=== PATIENT | female | born 1990 | race Caucasian/White ===

== ENCOUNTER → 2021-10-31 11:50 | Outpatient (CLI) | payer OTHER, SELFPAY | PROVIDERS: PCP Physician Assistant; Visit Provider Physician Assistant | DX: N76.0 Acute vaginitis (principal) | CPT/HCPCS: 87801; 87661; 87798 ==

== ENCOUNTER → 2024-10-13 09:59 | Outpatient (CLI) | payer BC, SELFPAY ==
[2024-10-13 19:06] LABS: Add Manual Diff / Slide Review NO; Basophils Absolute Auto 0 /uL (0-100); Basophils Percent Auto 0.6 % (0-2); Eosinophils Absolute Auto 100 /uL (0-450); Eosinophils Percent Auto 2.2 % (2-4); HEMOLYSIS 33 (0-50); Hematocrit 38.1 % (36-46); Hemoglobin 12.4 g/dL (12.0-16.0); Iron 104 ug/dL (37-170); Lymphocytes Absolute Auto 1800 /uL (1100-4500); Lymphocytes Percent Auto 36.7 % (25-40); Mean Corpuscular HGB Conc 32.5 % (30-36); Mean Corpuscular Volume 76.9 fL (80-100); Monocytes Absolute Auto 300 /uL (0-900); Neutrophils Absolute Auto 2600 /uL (1500-7000); Neutrophils Percent Auto 53.5 % (50-75); Platelet Count 226 X10^3/uL (150-400); Red Blood Cell Count 4.96 X10^6/uL (4.0-5.2); Red Cell Distribution Width 15.1 % (11.6-14.8); White Blood Cell Count 4.8 X10^3/uL (4.5-11.0)
[2024-10-13 19:12] LABS: Alanine Aminotransferase 17 IU/L (<35); Albumin 4.3 g/dL (3.5-5.0); Albumin Globulin Ratio 1.5 (1.0-2.8); Alkaline Phosphatase 50 U/L (38-126); Aspartate Aminotransferase 27 IU/L (14-36); BUN Creatinine Ratio 18.6 (6-22); Bilirubin Total 0.5 mg/dL (0.2-1.3); Blood Urea Nitrogen 13 mg/dL (7-17); Calcium 9.4 mg/dL (8.4-10.2); Carbon Dioxide 25 mmol/L (22-32); Chloride 105 mmol/L (98-107); Cholesterol 202 mg/dL (140-199); Estimated Glomerular Filt Rate > 60 mL/min (>60); Globulin 2.9 g/dL (1.7-4.1); Glucose 84 mg/dL (70-99); HDL Cholesterol 44 mg/dL (40-60); HEMOLYSIS < 15 (0-50); LDL Cholesterol Calculated 139 mg/dL (<100); Potassium 4.2 mmol/L (3.4-5.1); Sodium 137 mmol/L (137-145); Total Protein 7.2 g/dL (6.3-8.2); Triglycerides 94 mg/dL (35-150)
[2024-10-13 19:18] LABS: Percent Iron Saturation 31 % (15-50); Total Iron Binding Capacity 335 ug/dL (265-497); Transferrin 271 mg/dL (206-381)
[2024-10-13 19:25] LABS: Vitamin D 25 Hydroxy (D3) 30.2 ng/mL (30.0-100.0)
[2024-10-13 19:39] LABS: TSH w/ Reflex to FT4 2.44 uIU/mL (0.47-4.68)
[2024-10-13 19:44] LABS: Ferritin 13 ng/mL (6-137)
[2024-10-13 20:15] LABS: Folate 4.4 ng/mL (2.76-20.0); Vitamin B12 298 pg/mL (239-931)
[2024-10-14 20:51] LABS: HIV 1 & 2 Ab/Ag 4th Gen Combo NEGATIVE (NEGATIVE); Hep C Virus Ab w/Reflex Quant NEGATIVE s/c (NEGATIVE)
== END ==
PROVIDERS: PCP Physician Assistant; Visit Provider Physician Assistant
DX: Z13.6 Encounter for screening for cardiovascular disorders (principal); Z82.49 Family history of ischemic heart disease and other diseases of the circulatory system; Z83.49 Family history of other endocrine, nutritional and metabolic diseases; R63.5 Abnormal weight gain; R01.1 Cardiac murmur, unspecified; Z86.2 Personal history of diseases of the blood and blood-forming organs and certain disorders involving the immune mechanism; Z11.4 Encounter for screening for human immunodeficiency virus [HIV]; Z11.59 Encounter for screening for other viral diseases
CPT/HCPCS: 80053; 80061; 82306; 82397; 82607; 82728; 82746; 83540; 83550; 84443; 85025; 86803; 87389

== ENCOUNTER → 2024-10-14 09:14 | Outpatient (CLI) | payer BC, SELFPAY ==
--- NOTE | 2024-10-14 09:16 | DI.ECHO.S_ITS ---
[facility]+ [facility] : : [address] : : [place] : : [id number] : : Phone: [phone] Echocardiogram Report + + :Name: KRZYSZTOF PRITCHARD Study Date: 10/14/2024 Height: 66 in : :Hospital ReadingLocation: Weight: 165 lb : : Gender: Female BSA: 1.8 m2 : :: 1990 Age: 34 yrs BP: 137/89 mmHg: :Reason For Study: HEART MURMUR : :Ordering Physician: NORM DINERO Performed By: Marty Schmitz : :Referring: NORM DINERO : + + Interpretation Summary The left ventricle is normal in size. Left ventricular systolic function appears normal without focal wall motion abnormalities. The ejection fraction is estimated to be 60-65%. Diastolic parameters suggest probable normal left ventricular diastolic function and normal filling pressures. The right ventricle is normal in size and function. The right ventricular systolic pressure is estimated to be at least 29 mmHg based on an estimated right atrial pressure of 3 mm Hg. Borderline left atrial enlargement. There is mild aortic regurgitation. The aortic root is normal size. Procedure: A two-dimensional transthoracic echocardiogram with color flow and Doppler was performed. The study quality was technically good. There is no prior echocardiogram noted for this patient. The patient was in normal sinus rhythm during the exam. Left Ventricle: The left ventricle is normal in size. There is normal left ventricular wall thickness. There is no ventricular septal defect visualized. Left ventricular systolic function appears normal without focal wall motion abnormalities. The ejection fraction is estimated to be 60-65%. Diastolic parameters suggest probable normal left ventricular diastolic function and normal filling pressures. Right Ventricle: The right ventricle is normal in size and function. Atria: Borderline left atrial enlargement. Right atrial size is normal. There is no Doppler evidence for an atrial septal defect. Mitral Valve: The mitral valve leaflets appear normal. There is no evidence of stenosis, fluttering, or prolapse. There is trace mitral regurgitation. Aortic Valve: The aortic valve is trileaflet. The aortic valve opens well. There is mild aortic regurgitation. Tricuspid Valve: The tricuspid valve leaflets are thin and pliable. There is mild tricuspid regurgitation. The right ventricular systolic pressure is estimated to be at least 29 mmHg based on an estimated right atrial pressure of 3 mm Hg. Pulmonic Valve: The pulmonic valve leaflets are thin and pliable; valve motion is normal. There is trace pulmonic regurgitation. Great Vessels: The aortic root is normal size. The dimensions of the ascending aorta are normal. The pulmonary artery is normal size. The IVC is of normal diameter and collapses greater than 50% with a sniff. This suggests a low right atrial pressure of 3 mm Hg. Pericardium/ Pleura There is no pericardial effusion. There is no pleural effusion. MMode/2D Measurements & Calculations LVIDd: 5.0 cm LVOT diam: 1.9 cm LVIDs: 3.4 cm Ao root diam: 2.7 cm FS: 32.9 % asc Aorta Diam: 2.9 cm EPSS: 0.61 cm Ao Arch Diam (Prox Trans): 1.00 cm IVSd: 0.72 cm LVPWd: 0.73 cm LV ayala. diameter/BSA (cm/m^2): 2.7 LV sys. diameter/BSA (cm/m^2): 1.8 LA A2 area: 18.4 cm2 RA long axis: 4.8 cm LA A4 area: 19.7 cm2 RA area: 14.1 cm2 LA length (vol): 5.4 cm RA vol: 35.0 ml LA vol: 57.5 ml RA : 19.0 ml/m2 LA vol index: 31.2 ml/m2 IVC diam: 1.9 cm RVD1 (basal): 3.5 cm RVD2 (mid): 2.4 cm TAPSE: 2.6 cm Doppler Measurements & Calculations Ao V2 max: 165.4 cm/sec LVOT Max Willi: 119.0 cm/sec Ao V2 mean: 116.0 cm/sec LV V1 max P.7 mmHg Ao max P.9 mmHg LV V1 VTI: 27.3 cm Ao mean P.0 mmHg TEJA(I,D): 2.1 cm2 Ao V2 VTI: 37.1 cm TEJA(V,D): 2.0 cm2 sev ratio: 0.73 TEJA indexed to BSA (cm^2/m^2): 1.1 AI P1/2t: 542.8 msec AI dec slope: 258.6 cm/sec2 MV E max willi: 75.5 cm/sec TR max willi: 257.8 cm/sec MV A max willi: 55.6 cm/sec TR max P.6 mmHg MV E/A: 1.4 PA V2 max: 127.7 cm/sec Med Peak E' Willi: 11.5 cm/sec PA V2 mean: 96.5 cm/sec E/E' med: 6.6 PA mean P.0 mmHg Lat Peak E' Willi: 14.0 cm/sec CORNELIUS pr(Accel): 36.2 mmHg E/E' lat: 5.4 E/e' average: 6.0 MV dec time: 0.20 sec SV(LVOT): 76.1 ml Reading Physician:06:33 PM
== END ==
PROVIDERS: PCP Physician Assistant; Referring Provider Physician Assistant; Visit Provider Physician Assistant
DX: I08.2 Rheumatic disorders of both aortic and tricuspid valves (principal); R01.1 Cardiac murmur, unspecified; Z82.49 Family history of ischemic heart disease and other diseases of the circulatory system
CPT/HCPCS: 93306

== ENCOUNTER → 2024-12-01 08:55 | Outpatient (CLI) | payer BC, SELFPAY | PROVIDERS: PCP Physician Assistant; Visit Provider Physician Assistant | DX: L08.9 Local infection of the skin and subcutaneous tissue, unspecified (principal) | CPT/HCPCS: 87070; 87075; 87205 ==

== ENCOUNTER → 2025-02-26 14:27 | Outpatient (CLI) | payer BC, SELFPAY ==
[2025-02-26 18:53] LABS: Hematocrit 36.6 % (36-46); Hemoglobin 12.1 g/dL (12.0-16.0)
== END ==
PROVIDERS: PCP Physician Assistant; Visit Provider Obstetrics & Gynecology Reproductive Endocrinology
DX: Z01.83 Encounter for blood typing (principal); Z11.59 Encounter for screening for other viral diseases
CPT/HCPCS: 85014; 85018; 86900; 86901

== ENCOUNTER → 2025-04-23 08:49 | Outpatient (CLI) | payer BC, SELFPAY ==
--- NOTE | 2025-04-23 08:51 | DI.MG.S_ITS ---
MM diagnostic mammo BI, US breast LT limited: 04/23/2025 BI-RADS: 4 CLINICAL: 35-year old female for bilateral diagnostic mammogram and left diagnostic breast ultrasound. Tyrer-Cuzick lifetime risk of 14.9%. No personal or first- degree family history of breast cancer. The patient reports a palpable abnormality felt by her doctor (3 months) in the left breast. PRIOR EXAMS: None. This is a baseline mammogram. MAMMOGRAPHY TECHNIQUE: 2D and 3D (tomosynthesis) digital mammographic views obtained, with additional images as needed for full coverage. Current study was also evaluated with a Computer Aided Detection (CAD) system. ULTRASOUND TECHNIQUE Real-time hammer scale and color doppler imaging of the area of clinical interest was performed with image documentation. Left targeted breast ultrasound of the area of clinical interest and the axilla was performed with image documentation. DENSITY C. The breasts are heterogeneously dense, which may obscure small masses. MAMMOGRAPHY FINDINGS Right: No suspicious mass, asymmetry, microcalcification, or other abnormality seen. Left (finding-1): Upper Outer Quadrant, Middle depth: Underlying surface marker and correlating with physician concern of palpable lump there is an area of architectural distortion present. Left (finding-2): Upper Inner Quadrant, Middle depth: There is a possible focal asymmetry which appears less conspicuous with spot compression views. ULTRASOUND FINDINGS Left (finding-1): Upper Outer at 1:00, 4 cm from nipple, measuring 1 x 1.2 x 0.8 cm: Underlying a surface marker and correlating with physician concern of palpable lump and also with findings on mammogram there is an area of non-specific acoustic shadowing. Left (finding-2): Upper Inner at 10:30, 4 cm from nipple: There is no sonographic abnormality to account for imaging concern on mammography. Left: Axilla, measuring 2.7 x 1.5 x 1.2 cm: There is a normal-appearing lymph node. IMPRESSION: Right * No evidence of malignancy. Left (Arch Distortion): Upper Outer at 1:00, 4 cm from nipple, measuring 1 x 1.2 x 0.8 cm * Suspicious findings with likelihood of malignancy. Left: Upper Inner Quadrant, Middle depth * Probably Benign. RECOMMENDATIONS Left: Upper Inner Quadrant, Middle depth * Recommend further management pending the results of the biopsy. If benign, recommend short interval mammographic follow up in 6 months. Left: Upper Outer at 1:00, 4 cm from nipple * Ultrasound-guided biopsy for further evaluation. COMMENTS: Findings and recommendations regarding the biopsy were conveyed to the patient during today's evaluation by Dr. Taylor. OVERALL ASSESSMENT CATEGORY BI-RADS-4: Suspicious. PRELIMINARILY ELECTRONICALLY SIGNED: Jennifer Taylor M.D. on 04/23/2025 at 11:59:28 AM PT ELECTRONICALLY SIGNED: Jennifer Taylor M.D. on 04/23/2025 at 11:59:37 AM PT Interpreting Station ID: [id number]
== END ==
LOC: MAMMO 08:50
PROVIDERS: PCP Physician Assistant; Referring Provider Physician Assistant; Visit Provider Physician Assistant
DX: R92.8 Other abnormal and inconclusive findings on diagnostic imaging of breast (principal); N63.21 Unspecified lump in the left breast, upper outer quadrant; R92.333 Mammographic heterogeneous density, bilateral breasts
CPT/HCPCS: 76642; 77066; G0279

== ENCOUNTER → 2025-04-29 14:23 | Outpatient (CLI) | payer BC, SELFPAY ==
--- NOTE | 2025-04-29 | PATH_ITS ---
[facility] Accession Number: [id number] No. of containers..01 Tissue . 01 Material submitted: . breast - LEFT BREAST MASS 1:00, 4CMFN . 01 Clinical history: . LEFT BREAST MASS 1:00 4CMFN . 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 Combined total Tiffany histologic score: 6/9 (tubule formation 3, nuclear pleomorphism 2, and mitotic index 1). Overall grade: Grade 2, moderately differentiated. In situ carcinoma present: Ductal type, solid and cribriform architecture, nuclear grade 2, without comedonecrosis. Lymphovascular invasion: Not identified. Greatest linear extent of invasive carcinoma: 11 mm, as measured from the glass slide. Rare microcalcifications associated with benign duct. Predictive markers: Estrogen and Progesterone Receptors positive, HER2 negative for expression by immunohistochemistry (1+), and low proliferation index, Ki67, please see microscopic description for details. MRV 05/01/2025 1711 Local . 01 Comment: As part of ongoing quality control lead, this case is also reviewed by Dr. Ann Lucero, who agrees with the interpretation. . Results were called to MARLENA Morrell, on 05/01/2025 at 1:15 p.m. . 01 Electronically signed: . Meg Riley MD, Pathologist NPI- [id number] . 01 Gross description: . Received is one formalin-filled container labeled with the patient's name labeled Lt. breast. The specimen is received with plastic filter in the container and sample loose in container, and consists of three hammer-shea, cylindrical shaped pieces of tissue which range in length from 1.3 to 2.0 cm with average diameter of 0.2 to 0.3 cm. The specimen is entirely submittted in cassette A1. . Collection date and time per requisition 04/29/2025 at 1548 hours. Total fixation time approximately 12 hours. (DC:[id number]) /CLAUDIA 04/30/2025 0650 Local . 01 Microscopic: . E-Cadherin immunostain is performed and is strong diffuse positive on the invasive tumor supporting ductal differentiation. . P63 and myosin immunostains confirm the absence of myoepithelial cell layer of the infiltrating tumor cells, with internal control working well. . . . . Estrogen Receptor (SP1): Positive, strong intensity, 91-100%. Progesteroner Receptor (1E2): Positive, strong intensity, 91-100%. HER2 (4B5): Negative for overexpression (1+). Proliferation marker Ki67: Low, less than 5%. . Internal controls for ER and WI are positive. Cold ischemic time is <1 minute. The scoring criteria for breast biomarkers by immunohistochemistry is based on the ASCO/CAP guidelines (Mona AC et al, J Clin Oncol: 2017 10;36(20):6904-7480 and Angelina ME et al, Arch Pathol Lab Med: 2009;134(6):907-22). Deparaffinized sections of formalin fixed tissue (along with appropriate positive controls) are incubated with the above antibody(s). Using the automated [place] stainer, tissue is incubated with the designated antibody which is then localized by a non-biotin, dual polymer detection system. The external controls are reviewed for appropriate reactivity and found to be adequate. Results on the target cell population are indicated above. These tests have not been validated on decalcified tissue. . This test was developed and the performance characteristics were validated by [employer]. It has not been cleared or approved by the U.S. Food and Drug Administration. . 01 Pathologist provided ICD-10: C50.812 . 01 CPT . 462877, D59192, F53357, 750164, 536550, 629963, 202967 Performed at: [address] [address], [place], [place] [id number] MD Ladarius Davidson MD Phone: [phone]
--- NOTE | 2025-04-29 14:24 | DI.US.S_ITS ---
Left US bx breast perc w vac device: 04/29/2025. CLINICAL: 35-year old female for left procedure that resulted from diagnostic mammogram on 04/23/2025. Tyrer-Cuzick lifetime risk of 14.9%. No personal or first-degree family history of breast cancer. The patient reports a palpable abnormality (3 months) in the left breast. CONSENT Risks including but not limited to bleeding and infection, benefits and alternatives were discussed with the patient. The patient agreed to the procedure and signed informed consent. Time out procedure was used. ROUTINE Left: Patient positioned in the supine or supine-oblique position, prepped and draped in the usual manner using sterile technique. TECHNIQUE Left Breast: Upper Outer at 1:00, Mid-Depth: Procedure: Ultrasound-guided vacuum-assisted biopsy of a mass with Open Coil-shaped marker placement. Device: 14-gauge vacuum-assisted biopsy instrument. Approach: Lateral. Anesthesia: Local anesthesia obtained using 5 ml 1%-lidocaine. Secondary local anesthesia obtained using 5 ml 1%-lidocaine with epinephrine. Skin Entry: Incision with #11 blade. Passes: 3. Specimens: 3. Targeting Confirmation: Real-time Observation and Post-Procedure Imaging. Post-procedure imaging: Post-procedure ultrasound. Conclusion: Ultrasound-guided Vacuum-assisted biopsy with post-procedure ultrasound, Left Breast: Upper Outer at 1:00, Mid-Depth POST-PROCEDURE NOTE Mammography equipment was not available at time of biopsy. Patient chose to proceed with biopsy and return when equipment was available for post clip imaging confirmation. By ultrasound, clip appeared to be at biopsy site. COMPLICATIONS: No complications were encountered while the patient was in our department. DISPOSITION The patient left our department in good condition with aftercare instructions and urged to contact us should any problem arise. SUMMARY Left Breast: Upper Outer at 1:00, Mid-Depth: Ultrasound-guided vacuum- assisted biopsy of a mass with Open coil-shaped marker placement. ELECTRONICALLY SIGNED: Yi Morton M.D. on 05/01/2025 at 08:49:56 AM PT Interpreting Station ID: [id number]
== END ==
LOC: US 14:23
PROVIDERS: PCP Physician Assistant; Referring Provider Radiology Diagnostic Radiology; Visit Provider Radiology Diagnostic Radiology
DX: C50.412 Malignant neoplasm of upper-outer quadrant of left female breast (principal); N63.21 Unspecified lump in the left breast, upper outer quadrant; Z17.0 Estrogen receptor positive status [ER+]; Z17.21 Progesterone receptor positive status
CPT/HCPCS: 19083

== ENCOUNTER → 2025-05-01 10:37 | Outpatient (CLI) | payer BC, SELFPAY ==
--- NOTE | 2025-05-01 10:38 | DI.MG.S_ITS ---
MM clip placement LT: 05/01/2025. BI-RADS: None CLINICAL: 35-year old female for left diagnostic mammogram. Tyrer-Cuzick lifetime risk of 18.8%. Mammogram is performed after US guided biopsy to assess marker location. The patient had biopsy performed on 04/29/2025, however the mammogram machine was not available at that time due to technical issues. PRIOR EXAMS US guided biopsy 04/29/2025. MAMMOGRAPHY TECHNIQUE: 2D and/or 3D (tomosynthesis) digital mammographic views obtained, with additional images as needed for full coverage. DENSITY Left: C. The breast is heterogeneously dense, which may obscure small masses. MAMMOGRAPHY FINDINGS Left: Upper Outer at 1:00, 4 cm from nipple: There is a (Tumark(R) Vision) biopsy marker in targeted location. This was incorrectly listed as an open-coil clip on the biopsy report from 04/29/2025. IMPRESSION: Left * Biopsy marker present. OVERALL ASSESSMENT CATEGORY BI-RADS None: This exam requires no BI-RADS. ELECTRONICALLY SIGNED: Jennifer Taylor M.D. on 05/01/2025 at 01:23:43 PM PT Interpreting Station ID: [id number]
== END ==
PROVIDERS: PCP Physician Assistant; Referring Provider Radiology Diagnostic Radiology; Visit Provider Physician Assistant
DX: N63.21 Unspecified lump in the left breast, upper outer quadrant (principal); R92.333 Mammographic heterogeneous density, bilateral breasts
CPT/HCPCS: 77065